=== PATIENT | female | born 1985 | race Caucasian/White ===

== ENCOUNTER 2016-12-05 09:04 | Inpatient (IN) | payer SELFPAY ==
[~2016-12-05] VITALS: Ht 165.1 cm; Wt 75.0 kg
--- OUTSIDE RECORDS SUMMARY | ~2016-12-05 | XMS ---
Demographics + + + | Address | [address] | | | [place] [address] | + + + | Preferred Language | Unknown | + + + | Marital Status | Unknown | + + + | Restorationist Affiliation | Unknown | + + + | Race | Unknown | + + + | Ethnic Group | Unknown | + + + Author + + + | Author | [facility] | + + + | Organization | [facility] | + + + | Address | [address] | | | [place] [address] | + + + | Phone | | + + + Care Team Providers + + + + | Care Garnetter Name | Role | Phone | + + + + Unavailable | Unavailable | + + + + PROBLEMS +---------+ + + +--------+ + + | Type | Condition | ICD9-CM | NOR81-UG | Onset | Condition | SNOMED | | | | Code | Code | Dates | Status | Code | +---------+ + + +--------+ + + | Problem | Encounter | Z34.90 | | | Active | [id number] | | | for | | | | | | | | supervisio | | | | | | | | n of | | | | | | | | normal | | | | | | | | | | | | | | +---------+ + + +--------+ + + ALLERGIES Unknown Allergies SOCIAL HISTORY No smoking Hx information available PLAN OF CARE VITAL SIGNS MEDICATIONS Unknown Medications RESULTS No Results PROCEDURES No Known procedures IMMUNIZATIONS No Known Immunizations"
--- OUTSIDE RECORDS SUMMARY | ~2016-12-05 | XMS ---
Demographics + + + | Address | [address] | | | [place] [address] | + + + | Preferred Language | Unknown | + + + | Marital Status | Unknown | + + + | Restorationist Affiliation | Unknown | + + + | Race | Unknown | + + + | Ethnic Group | Unknown | + + + Author + + + | Author | [facility] | + + + | Organization | [facility] | + + + | Address | [address] | | | [place] [address] | + + + | Phone | | + + + Care Team Providers + + + + | Care Skin Diver Name | Role | Phone | + + + + Unavailable | Unavailable | + + + + PROBLEMS +---------+ + + +--------+ + + | Type | Condition | ICD9-CM | [id number] | Onset | Condition | SNOMED | | | | Code | Code | Dates | Status | Code | +---------+ + + +--------+ + + | Problem | Encounter | Z34.90 | | | Active | [id number] | | | for | | | [...]
[2016-12-06] MEDS ORDERED: EXPECTA PRENAT1 EACH PO (05:55)
--- NOTE | 2016-12-06 08:31 | NUR ---
12/06/16 0831 Citlali Ge REPORT FROM [employer] DRIVER.
--- NOTE | 2016-12-08 12:03 | OR ---
[facility] [address] [place], [place] [address] Signed The patient of Dr. Cadena. DATE OF SERVICE: 12/06/2016 PREOPERATIVE DIAGNOSES: Term , previous section x2, dilated cervix. POSTOPERATIVE DIAGNOSES: Term , previous section x2, dilated cervix. PROCEDURE PERFORMED: Repeat low transverse segment section. Delivery of live male infant. ANESTHESIA: Spinal. ESTIMATED BLOOD LOSS: 500 mL. COMPLICATIONS: None. DRAINS: Rock to bladder. SURGEON: Julio Cesar Cadena MD. LAUNDRY AID: Bee Black MD. FINDINGS: Live male infant, Apgars 8 and 9. Weight 7 pounds, 14 ounces. Normal uterus, normal tubes, and ovaries bilaterally. DESCRIPTION OF PROCEDURE: The patient brought in the operating room, placed in supine position. After adequate spinal anesthesia was obtained, was prepped and draped in usual sterile fashion. Rock catheter was placed in the bladder. A Pfannenstiel skin incision made with scalpel extended through subcutaneous tissue with the Bovie and the scalpel. The fascia was nicked with scalpel and extended in transverse fashion using curved scissors. The underlying abdominal musculature was bluntly and sharply from the fascia above and below the incision. The abdominal musculature was bluntly and sharply in the midline using Hinojosa scissors. Perineum was densely adherent to the abdominal musculature, was opened at the same time. Care was taken to avoid the bladder. The Man self-retaining retractor was then inserted into the incision, tightened in place. The lower uterine segment was identified. Area well above the bladder was nicked with scalpel and opened with finger dissection and extended in a transverse fashion using Electronically Signed By: JULIO CESAR CADENA MD 12/08/16 1203 PATIENT NAME: USMAN GROSSMAN OPERATIVE REPORT DATE OF : 83 PHYSICIAN: JULIO CESAR CADENA MD REPORT #: [id number] REPORT IS CONFIDENTIAL AND NOT TO BE RELEASED WITHOUT AUTHORIZATION [facility] [address] [place], [place] [address] Signed finger dissection. A clear fluid came from the incision and the was noted to be in vertex straight OP presentation. The infant's head was easily delivered from the incision. The rest of the was easily delivered from the incision, the mouth and nose suctioned bulb syringe. The cord was doubly clamped and cut. The passed off table in good condition to awaiting nurse. The placenta was manually removed and uterine cavity explored, a lap pad to remove any retained membranes. Angle stitch of 0 Monocryl was placed at one end of the incision in a running locking stitch of 0 Monocryl, was used to close the incision. A 2nd running stitch of 0 Monocryl was used to imbricate the 1st layer. Good hemostasis was noted. The entire pelvis was irrigated, suctioned. Examined any superficial bleeding spots, cauterized with the Bovie. At this point, all the Man retractor was removed. Then sheet of ACell placed over the lower uterine segment to help with healing. The anterior wall peritoneum was then closed using running stitch of 2-0 Vicryl sutures. The abdominal musculature was reapproximated using interrupted stitches of 0 Vicryl suture. The abdominal wall incision was irrigated, suctioned, examined any bleeding spots cauterized with the Bovie. The abdominal musculature was sprinkled with powdered ACell, again to help with healing and then the fascia closed using 2 running stitch of 0 Vicryl suture meeting in the midline. Subcutaneous tissue was irrigated, suctioned examined, any bleeding spots were cauterized with the Bovie. The remaining powdered ACell was sprinkled on subcutaneous tissue, which was then closed using interrupted stitche s of 3-0 Vicryl sutures. Skin was reapproximated using skin clips. The patient tolerated the procedure well, went to recovery room in good condition. All sponge, needle, instrument counts were correct at the end of the procedure. MD EDUARDA Ma/Modl /[id number] Electronically Signed By: JULIO CESAR CADENA MD 12/08/16 1203 PATIENT NAME: USMAN GROSSMAN OPERATIVE REPORT DATE OF : 83 PHYSICIAN: JULIO CESAR CADENA MD REPORT #: [id number] REPORT IS CONFIDENTIAL AND NOT TO BE RELEASED WITHOUT AUTHORIZATION
--- NOTE | 2016-12-08 12:07 | PR ---
[facility] [address] [facility] [place] [address] Signed PP Progress Notes Datetime Report Generated by CPN: 12/08/2016 12:07 SUBJECTIVE: [id number] Pain: Within normal limits Nausea/Vomiting: Denies Vital Signs: [id number] Vital Signs: Reviewed; Within Normal Limits Notable Details: PP Hgb/Hct = 9.9/29.0 EXAM: [id number] Abdomen/Uterus: Normal Lochia: Normal Extremities: Normal Incision: Normal IMPRESSION/PLAN/PROCEDURES: [id number] Impression: Normal progression Plan: Discharge Procedures: None Progress Notes: Doing well, ready to go home. Signing Physician: Evert Gary MD CC: *Electronically Signed* 12/08/16 1207 EVERT GARY MD PATIENT NAME: USMAN GROSSMAN PROGRESS NOTE DATE OF : 83 PHYSICIAN: EVERT GARY MD RPT #: [id number] REPORT IS CONFIDENTIAL AND NOT TO BE RELEASED WITHOUT AUTHORIZATION
== END 2016-12-08 14:45 | disposition home or self-care (01) | DRG 766 ==
LOC: FBC 12-06 05:14
PROVIDERS: ADMIT General Practice
PROC: 10D00Z1 Extraction of Products of Conception, Low, Open Approach (ICD-10-PCS; principal; 2016-12-06 07:30)
DX: O34.211 Maternal care for low transverse scar from previous cesarean delivery (principal); Z3A.38 38 weeks gestation of pregnancy; Z37.0 Single live birth
CPT/HCPCS: 01961; 36415; 85027; C1763; J0690; J1100; J1170; J2274; J2300; J2370; J2405; J2550; J2590; J3010; J7120